=== PATIENT | male | born 1950 | race Caucasian/White ===

== ENCOUNTER 2016-06-13 18:29 | Observation (INO) | payer OTHER ==
--- NOTE | 2016-06-13 19:00 | EDPHY ---
H & P Stated Complaint: 3 weeks cough/fever Source: Patient, Family Exam Limitations: No limitations - Personal History Current Tetanus/Diphtheria Vaccine: No - Medical/Surgical History Hx Asthma: No Hx Chronic Respiratory Disease: No Hx Diabetes: No Hx Cardiac Disease: No Hx Renal Disease: No Hx Cirrhosis: No Hx Alcoholism: No Hx HIV/AIDS: No Hx Splenectomy or Spleen Trauma: No Other PMH: kidney stones x2 - Social History Smoking Status: Former smoker HPI/ROS: CHIEF COMPLAINT: Cough, fever HISTORY OF PRESENT ILLNESS: 3 weeks of intermittent fever and cough. The cough is never fully gone away. It waxes and wanes. The fever had a T-max of 104 today by IR. Tylenol was taken at 5:00 p.m. and temperature not improved , thus he came to the ER. He has minimal headache with this when his fever is up but resolves when he is afebrile. The cough is persistent and productive. There is a painful cough at times but he has no chest pain of any kind during this. No sore throat. No neck pain or stiffness. No sores or lesions. No rash. No travel or an ocular lesions. No abdominal or urinary complaints. No complaints of the extremities. difficult to assess for modifying factors as he is unsure. No other associated complaints or modifying factors. REVIEW OF SYSTEMS: Ten systems reviewed and are negative unless otherwise noted in the HPI EXAMINATION General Appearance: Alert, no distress Head: normocephalic, atraumatic Eyes: Pupils equal and round, no conjunctival pallor or injection, EOMs intact ENT, Mouth: Mucous membranes moist. Uvula midline. No posterior erythema or edema. Neck: Normal inspection, supple, non-tender . Range of motion painless in all planes Respiratory: mild rhonchi. No consolidation, crackles, wheezing or diminishment Cardiovascular: tachycardic with regular rhythm. Systolic murmur. Pulses intact distally Gastrointestinal: Abdomen is soft and nontender. No tympany, rigidity. Nonacute abdomen. Back: non-tender, no bony abnormalities Neurological: A&O, Two through 12 grossly intact. Nonfocal. No pronator drift. Strength symmetric in all limbs Skin: warm to the touch. Grossly intact without any rashes or lesions. Extremities: Nontender, no pedal edema . Range of motion intact Psychiatric: Mood and affect normal DIFFERENTIAL DIAGNOSES: Including but not limited to: sepsis, pneumonia, bronchitis, influenza MDM: 6:58 p.m. Cough and fever. Patient was tachycardic and tachypneic, thus we immediately ordered a sepsis workup. He is not hypotensive. his examination is not consistent with his vitals, but sepsis labs are pending. He is not hypoxic. His auscultation is relatively benign without any obvious pneumonia. Labs are currently being drawn at this time. 8:20pm sepsis of uncertain etiology. The patient does have a lactic acid of 3.0. He is tachycardic but not hypotensive. No white count. Chest x-ray negative. UA negative. Sputum cultures are pending. This we are treating for cryptogenic sepsis at this time. We have ordered Rocephin and Zithromax. I discussed the case with the hospitalist, he will be admitted to Dr. Graham at this time. He remains hemodynamically stable at this point has received his 30 mL per kg of IV fluid resuscitation. Patient and spouse are comfortable with this plan and he is admitted in stable condition. SUPERVISION: Patient was evaluated in conjunction with the supervising physician. Please see their note for details. (Job Alba) Constitutional: Initial Vital Signs Temperature (C) 37.4 C 06/13/16 18:33 Heart Rate 135 H 06/13/16 18:33 Respiratory Rate 22 H 06/13/16 18:33 Blood Pressure 102/78 06/13/16 18:33 O2 Sat (%) 92 06/13/16 18:33 O2 Delivery Mode Room Air Allergies/Adverse Reactions: No Known Allergies Allergy (Verified 06/13/16 18:33) Home Medications: Medication Instructions Recorded Azithromycin IV [Zithromax Inj] 500 mg IV DAILY #3 vial 06/14/16 - Data Points Laboratory Results: Laboratory Results 06/13/16 18:55 06/13/16 18:55 Microbiology Results: MICROBIOLOGY 06/13/16 20:20 Sputum, Expectorated - Final 06/13/16 20:20 Sputum, Expectorated Sputum Culture - Preliminary Medications Given: Discontinued Medications Azithromycin 500 mg/ Dextrose 255 mls @ 255 mls/hr IV EDNOW ONE PRN Reason: Protocol Stop: 06/13/16 20:59 Last Admin: 06/13/16 21:27 Dose: 255 mls Ceftriaxone Sodium 2 gm/ (Dextrose) 50 mls @ 100 mls/hr IV EDNOW ONE PRN Reason: Protocol Stop: 06/13/16 20:28 Last Admin: 06/13/16 20:50 Dose: 50 mls Sodium Chloride (Ns *For Sepsis Order Set Only*) 2,381 ml IV EDNOW ONE Stop: 06/13/16 19:07 Last Admin: 06/13/16 19:10 Dose: 2,381 ml Departure - Departure Disposition: [facility] Acute Clinical Impression: SIRS (systemic inflammatory response syndrome), Cough Sepsis Qualifiers: Sepsis type: sepsis due to unspecified organism Qualifier Code: (A41.9) Sepsis , unspecified organism Condition: Good
[2016-06-13] MEDS ORDERED: NS 1,000 ML BAG *FOR SEPSIS ORDER SET ONLY IV ONE (19:06)
[2016-06-13 19:15] LABS: % IMMATURE GRANULYOCYTES 0.4 % (0.0-1.1); ABSOLUTE IMMATURE GRANULOCYTES 0.03 10^3/uL (0.00-0.10); ADD DIFF? NO; ADD MORPH? NO; ADD SCAN? NO; ATYPICAL LYMPHOCYTE FLAG 10 (0-99); FRAGMENT RBC FLAG 0 (0-99); HEMATOCRIT 39.2 % (40.0-51.0); HEMOGLOBIN 13.7 g/dL (13.7-17.5); LEFT SHIFT FLG 20 (0-99); LIPEMIA HEMOLYSIS FLAG 90 (0-99); MEAN CELL HEMOGLOBIN 30.9 pg (27.9-34.1); MEAN CELL HEMOGLOBIN CONCENTR. 34.9 g/dL (32.4-36.7); MEAN CELL VOLUME 88.3 fL (81.5-99.8); MEAN PLATELET VOLUME 10.9 fL (8.7-11.7); PLATELET CLUMPS FLAG 10 (0-99); PLATELET COUNT 187 10^3/uL (150-400); RED BLOOD CELL COUNT 4.44 10^6/uL (4.40-6.38); RED CELL DISTRIBUTION WIDTH 13.2 % (11.5-15.2)
--- NOTE | 2016-06-13 19:18 | DX ---
PA and Lateral Chest History: Cough and fever x2 weeks in a 65-year-old male; possible sepsis. Comparison to previous PA a nd lateral chest May 06, 2016. Findings: The heart and mediastinum are normal. Pulmonary vascularity is normal. The lungs are clear. There is no pleural fluid. There has been no significant change from the prior study. Impression: Chest negative for acute abnormality.
[2016-06-13 19:26] LABS: INR 1.12 (0.83-1.16); PROTIME(PATIENT) 14.3 SEC (12.0-15.0)
[2016-06-13 19:27] LABS: APTT 24.9 SEC (23.0-38.0)
[2016-06-13 19:37] LABS: ANION GAP 13 mEq/L (8-16); BILIRUBIN,TOTAL 0.9 mg/dL (0.1-1.4); CALCIUM 9.4 mg/dL (8.5-10.4); CARBON DIOXIDE 22 mEq/l (22-31); CHLORIDE 105 mEq/L (97-110); GLOMERULAR FILTRATION RATE > 60; GLUCOSE 101 mg/dL (70-100); SODIUM 140 mEq/L (134-144)
[2016-06-13] MEDS ORDERED: cefTRIAXone 2 GM in D5W 50 ML IV ONE (19:59)
[2016-06-13] MEDS ORDERED: AZITHROMYCIN IV 500 MG in D5W 250 ML IV ONE (20:00)
[2016-06-13 20:11] LABS: LACGHOST ORDER
[2016-06-13 20:39] LABS: COLOR YELLOW; LEUKOCYTE ESTERASE,URINE NEGATIVE (NEGATIVE); NITRITE,URINE NEGATIVE (NEGATIVE)
[2016-06-13] MEDS ORDERED: ONDANSETRON DISINTEGRATING 4 MG TAB PO PRN (22:13)
[2016-06-13] MEDS ORDERED: ALBUTEROL 3 ML DEYVIAL IH PRN (22:13)
[2016-06-13] MEDS ORDERED: ACETAMINOPHEN 325 MG TAB PO PRN (22:13)
[2016-06-13] MEDS ORDERED: ONDANSETRON 4 MG/2 ML VIAL IVP PRN (22:13)
[2016-06-13] MEDS: NS 1,000 ML IV SCH (22:24)
--- NOTE | 2016-06-14 00:46 | GHP ---
[f rep st] HISTORY AND PHYSICAL DATE OF ADMISSION: 06/13/2016 CHIEF COMPLAINT: Cough and fever. HISTORY OF PRESENT ILLNESS: A 65-year-old male with a limited past medical history, including nephro lithiasis who presents with complaints of high-grade fever measured at 104 degrees and a cough for th e last 3 weeks. The patient reports developing upper respiratory symptoms including a mildly product leodan cough that began approximately 3 weeks ago. He believed it was a simple cold and has not had com plete resolution of the cough itself. The patient then developed new fever the afternoon of presenta tion measured at home at greater than 104 degrees and, therefore, presented to the emergency departme . The patient denies any new rhinorrhea, sore throat, headache, vision changes, chest pain, pleuri tic chest pain, palpitations, or shortness of breath. Did have a rigoring sensation when he measured the fever. He has not had any progressing dyspnea on exertion or fatigue or associated anorexia. T he patient denies any rashes, any changes in his bowel habits, or diarrhea. PAST MEDICAL HISTORY: History of nephrolithiasis. SOCIAL HISTORY: Negative for tobacco, quit in his 30s. No alcohol or illicit drugs. FAMILY HISTORY: Negative for any lung disease. REVIEW OF SYSTEMS: A 10-point review of systems is negative with the exception of that reported in t he HPI. ADVANCE DIRECTIVES: Patient is full cor, full tube. PHYSICAL EXAMINATION: VITAL SIGNS: Blood pressure 131/78, heart rate 108. Upon arrival to the located within [facility] department, heart rate was 135, respiratory rate 20, 92% on room air, 36. GENERAL: This is a v gaurang healthy-appearing middle-aged male in no acute distress. HEENT: Notable for moist mucous membra daniel. Eye exam is negative for any icterus. CARDIAC: The patient is tachycardic but regular. No mu rmurs are appreciated. PULMONARY: Good respiratory effort. No wheezing, rales, or rhonchi are appre ciated. GASTROINTESTINAL: Positive bowel sounds. ABDOMEN: Soft and nontender. MUSCULOSKELETAL: Negative for any lower extremity edema. SKIN: Negative for any rashes. NEUROLOGIC: The patient is alert and oriented x3. PSYCHIATRIC: He is pleasant and cooperative on interview and examination. LABORATORY DATA: White count 8.0, hematocrit 39.2, platelets 187. Creatinine 1.0, sodium 140, lacta te at presentation 3.0. Urinalysis is negative. Influenza is negative. Chest x-ray, which I person ally reviewed and interpreted, shows no acute infiltrates or edema. ASSESSMENT AND PLAN: This is a 65-year-old male, presenting with persistent cough and fever. 1. Acute fever. Based on the patient's symptoms, it is possible that he initially had a viral uppe r respiratory infection which has converted to an atypical bacterial infection. Blood cultures have been sent from the emergency department. Chest x-ray unconcerning for typical pneumonia pathogens. I think it is appropriate to treat for atypical pathogens, monitor cultures overnight, and if the pat ient remains clinically stable, I think he is a candidate for disposition in the morning to complete a course of azithromycin. 2. Sinus tachycardia. The patient additionally has elevation in his lactate at presentation. September e dehydrated beyond his reported normal intake. Lactate has resolved to 1.8 with fluid resuscitation , and heart rates have improved. We will continue to follow on normal saline hydration overnight. PROPHYLAXIS: Lovenox. DIET: Regular. DISPOSITION: I expect in less than 2 midnights if the patient remained stable clinically. I have di scussed the case with the emergency room physician. Patient can be triaged for observation on the [facility] floor. /[id number]/MODL
[2016-06-14 04:38] LABS: % IMMATURE GRANULYOCYTES 0.4 % (0.0-1.1); ABSOLUTE IMMATURE GRANULOCYTES 0.05 10^3/uL (0.00-0.10); ADD DIFF? NO; ADD MORPH? NO; ADD SCAN? NO; ATYPICAL LYMPHOCYTE FLAG 0 (0-99); FRAGMENT RBC FLAG 0 (0-99); HEMATOCRIT 34.6 % (40.0-51.0); HEMOGLOBIN 12.1 g/dL (13.7-17.5); LEFT SHIFT FLG 30 (0-99); LIPEMIA HEMOLYSIS FLAG 90 (0-99); MEAN CELL HEMOGLOBIN 31.3 pg (27.9-34.1); MEAN CELL VOLUME 89.4 fL (81.5-99.8); MEAN PLATELET VOLUME 11.4 fL (8.7-11.7); PLATELET CLUMPS FLAG 0 (0-99); PLATELET COUNT 161 10^3/uL (150-400); RED BLOOD CELL COUNT 3.87 10^6/uL (4.40-6.38); RED CELL DISTRIBUTION WIDTH 13.4 % (11.5-15.2)
[2016-06-14 04:53] LABS: ANION GAP 12 mEq/L (8-16); CALCIUM 8.4 mg/dL (8.5-10.4); CARBON DIOXIDE 21 mEq/l (22-31); CHLORIDE 108 mEq/L (97-110); CREATININE 0.9 mg/dL (0.7-1.3); GLOMERULAR FILTRATION RATE > 60; GLUCOSE 125 mg/dL (70-100); SODIUM 141 mEq/L (134-144)
[2016-06-14] MEDS ORDERED: IPRATROPIUM/ALBUTEROL 3 ML DEYVIAL IH SCH (06:00)
[2016-06-14] MEDS: NS 1,000 ML IV SCH ×2 (07:52→19:27)
[2016-06-14] MEDS: AZITHROMYCIN IV 500 MG in D5W 250 ML IV SCH (08:58)
[2016-06-14] MEDS: ENOXAPARIN 40 MG/0.4 ML SYR SC SCH (08:58)
--- NOTE | 2016-06-14 16:50 | HOSPPROG ---
Hospitalist Progress Note Assessment/Plan: #Fever: -suspect atypical PNA -cont abx -blood cultures pending -flu negative #Tachycardia -improved with IVFs #Lactic acidosis -due to decreased PO -resolved again with IVFs #Disp: cont IV abx and IVFs. DC tomorrow if clinically stable Subjective: tired today. Some sweats Objective: Vital Signs Temp Pulse Resp BP Pulse Ox 36.9 C 97 16 116/82 H 89 L 06/14/16 15:04 06/14/16 15:04 06/14/16 15:04 06/14/16 15:04 06/14/16 15:04 Laboratory Results 06/14/16 04:21 06/14/16 04:21 06/13/16 06/14/16 06/15/16 05:59 05:59 05:59 Intake Total 3350 Balance 3350 PT 14.3 SEC (12.0-15.0) 06/13/16 18:55 INR 1.12 (0.83-1.16) 06/13/16 18:55 - Physical Exam Constitutional: no apparent distress, other (face flushed) Eyes: PERRL, anicteric sclera, other Ears, Nose, Mouth, Throat: dry mucous membranes Cardiovascular: regular rate and rhythym, no murmur, rub, or gallop Respiratory: no respiratory distress, no rales or rhonchi Gastrointestinal: normoactive bowel sounds, soft, non-tender abdomen Genitourinary: no bladder fullness Skin: warm, other (no rash or ulcerations) Musculoskeletal: full muscle strength Neurologic: AAOx3 ICD10 Worksheet Patient Problems: Problems Problem Status Diagnosed Cough Acute SIRS (systemic inflammatory response syndrome) Acute Fever Acute Pyelonephritis Acute Renal colic on right side Acute Renal insufficiency Acute
[2016-06-15 04:14] LABS: HEMATOCRIT 34.5 % (40.0-51.0); HEMOGLOBIN 12.1 g/dL (13.7-17.5); MEAN CELL HEMOGLOBIN 31.1 pg (27.9-34.1); MEAN CELL HEMOGLOBIN CONCENTR. 35.1 g/dL (32.4-36.7); MEAN CELL VOLUME 88.7 fL (81.5-99.8); RED BLOOD CELL COUNT 3.89 10^6/uL (4.40-6.38); RED CELL DISTRIBUTION WIDTH 13.1 % (11.5-15.2)
[2016-06-15 04:38] LABS: ANION GAP 10 mEq/L (8-16); CALCIUM 8.7 mg/dL (8.5-10.4); CARBON DIOXIDE 24 mEq/l (22-31); CHLORIDE 105 mEq/L (97-110); CREATININE 0.9 mg/dL (0.7-1.3); GLOMERULAR FILTRATION RATE > 60; GLUCOSE 112 mg/dL (70-100); POTASSIUM 4.1 mEq/L (3.5-5.2); SODIUM 139 mEq/L (134-144)
[2016-06-15] MEDS: AZITHROMYCIN IV 500 MG in D5W 250 ML IV SCH (07:13)
[2016-06-15 07:22] VITALS: BP 130/82; PULSE 90; RESP 18; TEMP 98.4; O2SAT 92
[2016-06-15] MEDS: ENOXAPARIN 40 MG/0.4 ML SYR SC SCH (09:49)
--- NOTE | 2016-06-15 14:27 | GDS ---
[f rep st] DISCHARGE SUMMARY DISCHARGE DIAGNOSES: 1. Fever. 2. Tachycardia. 3. Lactic acidosis. 4. Atypical pneumonia. 5. Leukocytosis. HPI: Patient is a pleasant 65-year-old male with past medical history of nephrolithiasis, presenting with high-grade fever up to 100 and cough for the last 3 weeks. He had upper respiratory symptoms, including a mildly productive cough, starting 3 weeks ago, and he thought is was a simple cough, but had not had complete resolution of those symptoms. He then had fever and shaking at home. He denied headache or sore throat, neck pain, rash, shortness of breath. No diarrhea. HOSPITAL COURSE: 1. Fever: Suspect this was atypical pneumonia. There was no overt opacity on x-ray. Influenza was negative. He was treated empirically for atypicals with ceftriaxone and azithromycin. Blood cultures have remained negative. Patient has now been afebrile since hospitalization. Will complete a 5-day course of antibiotics with transition to azithromycin. 2. Tachycardia, secondary to fever and acute illness: This has improved with IV fluids. 3. Lactic acidosis, secondary to decreased p.o. intake: This resolved with IV fluids. 4. Atypical pneumonia versus upper respiratory infection: No evidence of overt bacterial pneumonia on x-ray. Influenza negative. Will complete a total of 5 days antibiotics. Blood cultures have remained negative to date. DISPOSITION: Patient is stable for discharge. MEDICATIONS: Azithromycin 500 mg for 3 more days. FOLLOWUP: Patient can follow up with his PCP. /[id number]/MODL MTDD
== END 2016-06-15 10:19 | disposition home or self-care (01) ==
LOC: INTOOBSV 21:02 → F2W 22:18
PROVIDERS: ADMIT Internal Medicine; ATTEND Internal Medicine
DX: J18.9 Pneumonia, unspecified organism (principal); R50.9 Fever, unspecified; R00.0 Tachycardia, unspecified; E87.2 Acidosis
CPT/HCPCS: 71020; 96361; 96365; 96367; 99285; G0378; J0456; J0696; J1650; J2405